=== PATIENT | female | born 1960 | race Caucasian/White ===

== ENCOUNTER 2020-06-15 17:37 | Emergency (ER) | payer OTHER ==
[~2020-06-15] VITALS: Ht 175.3 cm; Wt 108.9 kg
[~2020-06-15 17:37] MED LIST: AMBEREN; ASPIRIN325 PO; BENADRYL25 MG; BENICAR40 MG; CALCIUM OYSTER500 MG; FLUOXETINE HCL40 MG; NITROSTAT0.4 MG SL; NUMOISYN300 ML; PREDNISONE50 MG PO; PRILOSEC40 MG PO; TRAMADOL 50 MG50 MG
[2020-06-15] MEDS ORDERED: OLMESARTAN-HCT1 EAC2 PO (17:49)
[2020-06-15] MEDS ORDERED: CELEXA 20 MG TA20 MG PO (17:49)
[2020-06-15] MEDS ORDERED: VITAMIN E400 UNI7 PO (17:50)
[2020-06-15] MEDS ORDERED: VITAMIN C500 M2 PO (17:50)
[2020-06-15] MEDS ORDERED: L-LYSINE500 M1 PO (17:50)
[2020-06-15 18:07] LABS: ABSOLUTE BASOPHILS 0.1 thou/uL (0.0-0.2); ABSOLUTE EOSINOPHILS 0.2 thou/uL (0.0-0.7); ABSOLUTE LYMPHOCYTES 2.6 thou/uL (0.8-5.3); ABSOLUTE MONOCYTES 0.7 thou/uL (0.0-1.2); ABSOLUTE NEUTROPHILS 4.3 thou/uL (1.6-8.1); BASOPHILS 0.9 %; HEMATOCRIT 42.1 % (37.0-47.0); HEMOGLOBIN 14.9 gm/dL (12.0-15.0); LYMPHOCYTES 32.8 %; MCH 29.8 pg (26.0-34.0); MCHC 35.3 g/dL (28.0-37.0); MCV 84.4 fL (80.0-100.0); MONOCYTES 8.8 %; MPV 7.3 fl. (7.2-11.1); NUCLEATED RBCS 0 /100WBC; PLATELET COUNT* 253 thou/uL (150-400); POLYS 55.5 %; RBC 4.99 mil/uL (4.20-5.00); RDW-CV 12.8 % (10.5-14.5); WBC 7.8 thou/uL (4.0-11.0)
[2020-06-15 18:16] LABS: CALCIUM 9.1 mg/dL (8.5-10.1); CREATININE 0.9 mg/dL (0.6-1.3); POTASSIUM 3.4 mmol/L (3.5-5.1)
[2020-06-15 18:26] LABS: ALBUMIN 4.4 g/dL (3.4-5.0); TOTAL BILIRUBIN 0.4 mg/dL (<0.1-1.0); TOTAL PROTEIN 7.9 g/dL (6.4-8.2)
[2020-06-15 19:37] LABS: URINE BILIRUBIN NEGATIVE (Negative); URINE BLOOD NEGATIVE (Negative); URINE CLARITY CLEAR; URINE COLOR YELLOW; URINE GLUCOSE-RANDOM NEGATIVE (Negative); URINE KETONES NEGATIVE (Negative); URINE LEUKOCYTES-REFLEX NEGATIVE (Negative); URINE NITRITE-REFLEX NEGATIVE (Negative); URINE PROTEIN NEGATIVE (Negative); URINE SPECIFIC GRAVITY 1.015 (1.005-1.030); URINE UROBILINOGEN 0.2 E.U./dl (0.2-1.0)
[2020-06-15] MEDS ORDERED: PHENERGAN 25 MG25 M1 PO (20:24)
[2020-06-15 20:57] VITALS: BP 148/77
--- NOTE | 2020-06-16 17:08 | EKG ---
[place] [address] ELECTROCARDIOGRAM REPORT Name: WALI SERNA Room: [facility]#: [id number] Admission: 06/15/20 Attend Phys: Discharge: 06/15/20 Date of : 58 Date of Service: 06/15/20 1756 Report #: [id number] THIS REPORT FOR: //name// [facility] ED Test Date: 2020-06-15 Test Time: 17:56:34 Pat Name: WALI SERNA Department: Room: Gender: F Financial Underwriter: : 1960 Requested By: Graciela Ladd Order Number: [id number] MD: Raman Daniel Measurements Intervals [place] Rate: 91 P: 54 RI: 159 QRS: 40 QRSD: 99 T: 36 QT: 383 QTc: 472 Interpretive Statements Sinus rhythm Probable left atrial enlargement RSR' in V1 or V2, right VCD Baseline wander in lead(s) V1,V2 Compared to ECG 01/29/2011 07:53:45 RSR' in V1 or V2 now present Electronically Signed On 06-16-2020 17:08:40 CDT by Raman Daniel [email or web address] <ELECTRONICALLY SIGNED> By: Raman Daniel MD, [facility] 06/16/20 1708 175 175 Raman Daniel MD, [facility] /EPI
== END 2020-06-15 20:58 | disposition home or self-care (01) ==
LOC: M.ERS 17:37
PROVIDERS: Nurse Practitioner Family
DX: I10 Essential (primary) hypertension (principal); Z88.0 Allergy status to penicillin; Z91.013 Allergy to seafood